=== PATIENT | female | born 1985 | race Caucasian/White ===

== ENCOUNTER 2016-07-28 01:02 | Emergency (ER) | payer BC ==
[~2016-07-28] VITALS: Ht 162.6 cm; Wt 78.2 kg
[2016-07-28] MEDS ORDERED: PROMETHAZINE HCL INJ 25 MG in SODIUM CHLORIDE 25 ML IV ONE (01:25)
[2016-07-28] MEDS ORDERED: SODIUM CHLORIDE FLUSH 10 ML SYR IV PRN (01:25)
[2016-07-28] MEDS ORDERED: SODIUM CHLORIDE FLUSH 3 ML SYR IV PRN (01:25)
[2016-07-28] MEDS ORDERED: diphenhydrAMINE 50 MG/ML INJ (BENADRYL) IV ONE (01:25)
[2016-07-28] MEDS ORDERED: KETOROLAC 30 MG/ML (TORADOL) 1 ML VIAL IV ONE (01:25)
[2016-07-28 03:07] VITALS: BP 96/57
== END 2016-07-28 02:50 | disposition home or self-care (01) ==
LOC: ED 01:07
DX: G43.909 Migraine, unspecified, not intractable, without status migrainosus (principal)
CPT/HCPCS: 70450; 96365; 96375; 99283; J1200; J1885; J2550; J7030